=== PATIENT | male | born 2000 | race Caucasian/White ===

== ENCOUNTER 2019-12-11 20:08 | Emergency (ER) | payer OTHER ==
--- NOTE | 2019-12-11 21:03 | ER Document Report ---
ED Medical Screen (RME) - General Chief Complaint: Abdominal Pain Stated Complaint: ABDOMINAL PAIN Time Seen by Provider: 12/11/19 20:58 TRAVEL OUTSIDE OF THE [place] IN LAST 30 DAYS: No - HPI Notes: 12/11/19 21:02 Patient is a 19-year-old male no significant past medical history who presents complaining of mid abdominal pain that began this evening when he was at work. Patient is not aware of anything that worsens or improves the symptoms. It is described as a sharp pain. Patient states that the pain does not radiate aside from to his middle abdomen. He is urinating normally and having normal bowel movements. No fever, chest pain, shortness of breath, vomiting, diarrhea. I have treated and performed a rapid initial assessment of this patient. A comprehensive ED assessment and evaluation of the patient, analysis of test results and completion of medical decision making process will be conducted by additional ED providers. PHYSICAL EXAMINATION: GENERAL: Well-appearing, well-nourished and in no acute distress. A&Ox4. Answers questions appropriately. Abd: Limited exam in triage. Grossly nontender. Soft throughout. - Related Data Allergies/Adverse Reactions: No Known Allergies Allergy (Verified 12/11/19 20:51) Past Medical History - Social History Chew tobacco use (# tins/day): No Frequency of alcohol use: Occasional Drug Abuse: None Physical Exam - Vital signs Vitals: Temp Pulse Resp BP Pulse Ox 98.4 F 83 20 146/96 H 100 12/11/19 20:24 12/11/19 20:24 12/11/19 20:24 12/11/19 20:24 12/11/19 20:24 Course - Vital Signs Vital signs: Temp Pulse Resp BP Pulse Ox 98.4 F 83 20 146/96 H 100 12/11/19 20:24 12/11/19 20:24 12/11/19 20:24 12/11/19 20:24 12/11/19 20:24
[2019-12-11 21:30] LABS: ABSOLUTE BASOPHILS # (AUTO) 0.1 10^3/uL (0.0-0.2); ABSOLUTE LYMPHOCYTES (AUTO) 1.8 10^3/uL (0.5-4.7); ABSOLUTE MONOCYTES (AUTO) 0.8 10^3/uL (0.1-1.4); ABSOLUTE NEUT (AUTO) 10.5 10^3/uL (1.7-8.2); BASOPHILS % (AUTO) 0.4 % (0-2); EOSINOPHILS % (AUTO) 0.2 % (0-6); HEMATOCRIT 43.6 % (37.9-51.0); HEMOGLOBIN 15.7 g/dL (13.5-17.0); LYMPHOCYTES % (AUTO) 13.8 % (13-45); MEAN CORPUSCULAR HEMOGLOBIN 29.6 pg (27.0-33.4); MEAN CORPUSCULAR VOLUME 82 fl (80-97); MONOCYTES % (AUTO) 5.8 % (3-13); PLATELET COUNT 204 10^3/uL (150-450); RED CELL DISTRIBUTION WIDTH 13.1 % (11.5-14.0); SEGMENTED NEUTROPHILS % (AUTO) 79.8 % (42-78); TOTAL CELLS COUNTED % (AUTO) 100 %; WHITE BLOOD COUNT 13.2 10^3/uL (4.0-10.5)
[2019-12-11 21:37] LABS: APPEARANCE,URINE CLEAR; BILIRUBIN,URINE NEGATIVE (NEGATIVE); COLOR,URINE YELLOW; GLUCOSE, URINE NEGATIVE (NEGATIVE); KETONES,URINE 20 mg/dL (NEGATIVE); PROTEIN,URINE NEGATIVE (NEGATIVE); URINE SPECIFIC GRAVITY 1.016; UROBILINOGEN,URINE NEGATIVE mg/dL (<2.0)
[2019-12-11 21:47] LABS: ALBUMIN 5.3 g/dL (3.5-5.0); ALKALINE PHOSPHATASE 108 U/L (38-126); ANION GAP 12 (5-19); ASPARTATE AMINO TRANSFERASE 39 U/L (17-59); BLOOD UREA NITROGEN 15 mg/dL (7-20); CALCIUM 9.8 mg/dL (8.4-10.2); CARBON DIOXIDE 27 mmol/L (22-30); CHLORIDE 101 mmol/L (98-107); GLUCOSE 84 mg/dL (75-110); POTASSIUM 3.9 mmol/L (3.6-5.0); TOTAL PROTEIN 8.4 g/dL (6.3-8.2)
--- NOTE | 2019-12-11 23:58 | ER Document Report ---
ED GI/ - General Chief Complaint: Abdominal Pain Stated Complaint: ABDOMINAL PAIN Time Seen by Provider: 12/11/19 20:58 Notes: Patient is a 19-year-old male that comes emergency department for chief complaint of mid abdominal pain. He states symptoms started earlier today, he states that he was bent over working and he suddenly stood up, he states when he stood up he felt a very sharp pain in his mid abdomen. He states the pain continued so he came in. He states pain is almost completely subsided now really hurts. He points just below the umbilicus for the site of the pain. He denies specific injury but he does admit that he was attempting with a group to lift a boat out of the water yesterday and he wonders if this is soreness. He denies abnormal bowel movements, had a normal bowel movement this morning, denies vomiting, fever/chills, flank pain, or any other complaints. He denies genital pain. He denies any surgeries or daily medications. Family at bedside. TRAVEL OUTSIDE OF THE [place] IN LAST 30 DAYS: No - Related Data Allergies/Adverse Reactions: No Known Allergies Allergy (Verified 12/11/19 20:51) Past Medical History - General Information source: Patient - Social History Smoking Status: Former Smoker Chew tobacco use (# tins/day): No Frequency of alcohol use: Occasional Drug Abuse: None Lives with: Family Family History: Reviewed & Not Pertinent Patient has suicidal ideation: No Patient has homicidal ideation: No Surgical Hx: Negative - Immunizations Immunizations up to date: Yes Hx Diphtheria, Pertussis, Tetanus Vaccination: Yes Review of Systems - Review of Systems Constitutional: No symptoms reported EENT: No symptoms reported Cardiovascular: No symptoms reported Respiratory: No symptoms reported Gastrointestinal: See HPI Genitourinary: No symptoms reported Male Genitourinary: No symptoms reported Musculoskeletal: See HPI Skin: No symptoms reported Hematologic/Lymphatic: No symptoms reported Neurological/Psychological: No symptoms reported Physical Exam - Vital signs Vitals: Temp Pulse Resp BP Pulse Ox 98.4 F 83 20 146/96 H 100 12/11/19 20:24 12/11/19 20:24 12/11/19 20:24 12/11/19 20:24 12/11/19 20:24 - Notes Notes: GENERAL: Alert, interacts well. No acute distress. HEAD: Normocephalic, atraumatic. EYES: Pupils equal, round, and reactive to light. Extraocular movements intact. ENT: Oral mucosa moist, tongue midline. Oropharynx unremarkable. Airway patent. LUNGS: Clear to auscultation bilaterally, no wheezes, rales, or rhonchi. No respiratory distress. HEART: Regular rate and rhythm. No murmur ABDOMEN: Abdomen is actually soft and nontender. There is no guarding or rigidity. McBurney's point is nontender. Bowel sounds present. No signs of trauma. EXTREMITIES: Moves all 4 extremities spontaneously. No edema, normal radial and dorsalis pedis pulses bilaterally. No cyanosis. BACK: no cervical, thoracic, lumbar midline tenderness. No saddle anesthesia, normal distal neurovascular exam. Moves all extremities in full range of motion. NEUROLOGICAL: Alert and oriented x3. Normal speech. Cranial nerves II through XII grossly intact. PSYCH: Normal affect, normal mood. SKIN: Warm, dry, normal turgor. No rashes or lesions noted. Course - Re-evaluation Re-evalutation: CBC shows mild leukocytosis without bandemia. Chemistry shows elevated proteins, probably by concentration. Urinalysis shows elevated specific gravity and some ketones. No blood in the urine. Patient has a surprisingly benign abdomen, his symptoms have significantly improved here, and he has a history suggesting that this is musculoskeletal in nature. Because he has no McBurney's point tenderness and no tenderness on my abdominal exam I do have a very low suspicion of acute abdomen. As result I do not feel a CAT scan is indicated. I did discuss this at length with patient and family. After discussing different options decision was made for time to be the next test, patient was given IV fluids, discussed expectations, follow-up, and return precautions in detail. Patient and family state appreciation and agreement. Stable and well-appearing at time of discharge. - Vital Signs Vital signs: Temp Pulse Resp BP Pulse Ox 98.6 F 60 18 150/82 H 100 12/12/19 00:35 12/12/19 00:35 12/12/19 00:35 12/12/19 00:35 12/12/19 00:35 - Laboratory Result Diagrams: 12/11/19 21:14 12/11/19 21:14 Laboratory results interpreted by me: 12/11/19 12/11/19 12/11/19 21:14 21:14 21:14 WBC 13.2 H Absolute Neuts (auto) 10.5 H Seg Neutrophils % 79.8 H Total Bilirubin 3.0 H Total Protein 8.4 H Albumin 5.3 H Urine Ketones 20 H Discharge - Discharge Clinical Impression: Abdominal pain Qualifiers: Abdominal location: generalized Qualified Code(s): R10.84 - Generalized abdominal pain Condition: Stable Disposition: HOME, SELF-CARE Additional Instructions: Your work-up does show dehydration, but your exam and overall evaluation are reassuring. The pain is most likely either muscular or from your bowel. At this time I have low suspicion of appendicitis or a surgical abnormality. You most likely have some soreness and intermittent and even sharp pain over the next day or 2 but this should gradually increase with time. You can take [id number] anti-inflammatories, hydrate, and rest. You can also apply heat over your abdomen. There is still a possibility that this develops into a concerning and even surgical problem, if you begin vomiting, the pain becomes progressively worse and localizes to one area, or if you develop a fever you need to return to the emergency department.
[2019-12-12] MEDS ORDERED: NORMAL SALINE 1000 ML 1,000 ML IV ONE (00:08)
[2019-12-12 00:38] VITALS: BP 150/82
== END 2019-12-12 00:53 | disposition home or self-care (01) ==
LOC: ER 20:08
DX: R10.84 Generalized abdominal pain (principal); D72.829 Elevated white blood cell count, unspecified; Z87.891 Personal history of nicotine dependence
CPT/HCPCS: 99284; 36415; 83690; 85025; 80053; 81001; J7030